=== PATIENT | female | born 1995 ===

== ENCOUNTER 2020-04-25 04:52 | Emergency (ER) | payer SELFPAY ==
[2020-04-25] MEDS ORDERED: Ketorolac 30 MG/ML SDV IM ONE (05:01)
[2020-04-25] MEDS ORDERED: diphenhydrAMINE 50 MG/ML SDV IVPUSH ONE (05:01)
[2020-04-25] MEDS ORDERED: Sodium Chloride 0.9% 1,000 ML IV ONE (05:01)
[2020-04-25] MEDS ORDERED: Ondansetron 4 MG/2 ML SDV IVPUSH ONE (05:02)
--- NOTE | 2020-04-25 05:15 | EDM.PDOC ---
ED HPI GENERAL MEDICAL PROBLEM - General Chief Complaint: Headache Stated Complaint: Migraine Time Seen by Provider: 04/25/20 05:09 Source of Information: Reports: Patient History Limitations: Reports: No Limitations - History of Present Illness INITIAL COMMENTS - FREE TEXT/NARRATIVE: Pt with migraine SAAB for several days Has not taken anything at home Has some N/V and photophobia No trauma No fever Onset: Gradual Duration: Day(s):, Getting Worse Location: Reports: Head Associated Symptoms: Reports: Nausea/Vomiting, Other (Photophobia) Headache Pain Score (Numeric/FACES): 8 - Related Data Allergies Allergy/AdvReac Type Severity Reaction Status Date / Time nickel Allergy Other Verified 04/25/20 04:58 ED ROS GENERAL - Review of Systems Review Of Systems: See Below HEENT: Reports: No Symptoms Respiratory: Reports: No Symptoms Cardiovascular: Reports: No Symptoms GI/Abdominal: Reports: Nausea, Vomiting Neurological: Reports: Headache, Other (photophobia) - Physical Exam Exam: See Below Exam Limited By: No Limitations General Appearance: Mild Distress Eye Exam: Bilateral Eye: EOMI Head Exam: Atraumatic Neuro Exam (Abbreviated): Alert, Oriented, No Motor/Sensory Deficits Extremities: Normal Inspection Psychiatric: Normal Affect, Normal Mood Course - Vital Signs Last Recorded V/S: Last Vital Signs Temp 98.5 F 04/25/20 04:53 Pulse 93 04/25/20 04:53 Resp 12 04/25/20 04:53 BP 121/50 L 04/25/20 04:53 Pulse Ox 98 04/25/20 04:53 - Orders/Labs/Meds Orders: Active Orders 24 hr Category Date Time Status Sodium Chloride 0.9% [Normal Saline] 1,000 ml Med 04/25/20 05:01 Active IV .BOLUS Medication Orders Sodium Chloride (Normal Saline) 1,000 mls @ 999 mls/hr IV .BOLUS ONE Stop: 04/25/20 06:01 Meds: Medications Generic Name Dose Route Start Last Admin Trade Name Freq PRN Reason Stop Dose Admin Sodium Chloride 1,000 mls @ 999 mls/hr 04/25/20 05:01 Normal Saline IV 04/25/20 06:01 .BOLUS ONE Discontinued Medications Generic Name Dose Route Start Last Admin Trade Name Freq PRN Reason Stop Dose Admin Diphenhydramine HCl 50 mg 04/25/20 05:01 Benadryl IVPUSH 04/25/20 05:02 ONETIME ONE Ketorolac Tromethamine 30 mg 04/25/20 05:01 Toradol IM 04/25/20 05:02 ONETIME ONE Ondansetron HCl 8 mg 04/25/20 05:02 Zofran IVPUSH 04/25/20 05:03 ONETIME ONE - Re-Assessments/Exams Free Text/Narrative Re-Assessment/Exam: 04/25/20 05:14 Pt given 1 L NS, Zofran 8 mg IV, Benadryl 50 mg IV and Toradol 30 mg IV in ER Departure - Departure Time of Disposition: 06:15 Disposition: Home, Self-Care 01 Clinical Impression: Migraine - Discharge Information *PRESCRIPTION DRUG MONITORING PROGRAM REVIEWED*: Not Applicable *COPY OF PRESCRIPTION DRUG MONITORING REPORT IN PATIENT CHE: Not Applicable Instructions: Migraine Headache, [id number] Additional Instructions: Follow up in clinic Sepsis Event Note (ED) - Evaluation Sepsis Screening Result: No Definite Risk - Focused Exam Vital Signs: Vital Signs Temp Pulse Resp BP Pulse Ox 04/25/20 04:53 98.5 F 93 12 121/50 L 98 - My Orders Last 24 Hours: My Active Orders 04/25/20 05:01 Sodium Chloride 0.9% [Normal Saline] 1,000 ml IV .BOLUS - Assessment/Plan Last 24 Hours: My Active Orders 04/25/20 05:01 Sodium Chloride 0.9% [Normal Saline] 1,000 ml IV .BOLUS
== END 2020-04-25 06:28 | disposition home or self-care (01) ==
LOC: LL.ED 04:52
DX: G43.909 Migraine, unspecified, not intractable, without status migrainosus (principal); R11.2 Nausea with vomiting, unspecified; Z91.048 Other nonmedicinal substance allergy status
CPT/HCPCS: 96361; 96374; 96375; 99283; J1200; J1885; J2405; J7030